=== PATIENT | male | born 1935 | race African-American/Black ===

== ENCOUNTER 2019-08-06 11:04 | Inpatient (IN) | payer MEDICARE, MEDICAID ==
[~2019-08-06] VITALS: Ht 188 cm; Wt 96.6 kg
[2019-08-06] MEDS ORDERED: KETOROLAC 60MG/2ML VIAL IM ONE (11:15)
[2019-08-06] MEDS ORDERED: SODIUM CHLORIDE 0.9% 1,000 ML IV ONE ×2 (12:23→14:15)
[2019-08-06 13:57] LABS: BASOPHILS % 0.1 % (0.0-2.0); EOSINOPHILS % 0.6 % (0.0-5.0); HEMATOCRIT. 40.4 % (42.0-52.0); HEMOGLOBIN. 13.3 g/dL (14.0-18.0); LYMPHOCYTES % 18.6 % (20.0-50.0); MEAN CORPUSCULAR HEMOGLOBIN 32.1 pg (28.0-32.0); MEAN CORPUSCULAR VOLUME 97.8 fL (80.0-94.0); MONOCYTES % 7.9 % (2.0-8.0); NEUTROPHILS % 72.8 % (40.0-76.0); PLATELET 231 x1000/uL (130-400); RED BLOOD CELL COUNT 4.13 mill/uL (4.7-6.1); RED CELL DISTRIBUTION WIDTH 13.5 % (11.6-14.6)
[2019-08-06 14:05] LABS: CHLORIDE 116 mEq/L (98-107)
[2019-08-06 14:22] LABS: CLARITY URINE CLOUDY (CLEAR); COLOR URINE DARK YELLOW (YELLOW); KETONES URINE NEGATIVE (NEGATIVE); LEUKOCYTE ESTERASE URINE 2+ (NEGATIVE); NITRITE URINE POSITIVE (NEGATIVE); OCCULT BLOOD URINE 2+ (NEGATIVE); PROTEIN URINE 1+ (NEGATIVE); SPECIFIC GRAVITY URINE 1.021 (1.005-1.030)
[2019-08-06] MEDS ORDERED: SODIUM CHLORIDE 0.45% 1,000 ML IV ONE (14:30)
[2019-08-06] MEDS ORDERED: CEFTRIAXONE 1 G PREMIX 50 ML IV ONE (14:45)
[2019-08-06] MEDS ORDERED: IPRATROPIUM/ALBUTEROL 0.5-3(2.5)MG/3ML NEB HHN PRN (16:30)
[2019-08-06] MEDS ORDERED: GUAIFENESIN 200MG/10ML SUGAR FREE UDC PO PRN (16:30)
[2019-08-06] MEDS ORDERED: ACETAMINOPHEN 325MG TABLET PO PRN (16:30)
[2019-08-06] MEDS ORDERED: ONDANSETRON HCL 4MG/2ML INJ IV PRN (16:30)
[2019-08-06 18:35] VITALS: BP 140/74
[2019-08-06 20:00] VITALS: BP 169/96
[2019-08-06] MEDS ORDERED: LEVOFLOXACIN 500MG PREMIX 100 ML IV NR (20:00)
[2019-08-06 21:15] VITALS: BP 169/96
[2019-08-06] MEDS: DEXT 5%/0.45% NACL KCL 20MEQ/L 1,000 ML IV SCH (21:33)
[2019-08-06] MEDS: LEVOFLOXACIN 250MG PREMIX 50 ML IV SCH (21:34)
[2019-08-06] MEDS: ENOXAPARIN 30MG/0.3ML SYR SUBCUT SCH (21:37)
[2019-08-07] VITALS: BP 152/72
[2019-08-07 04:00] VITALS: BP 150/77
[2019-08-07 06:14] LABS: BASOPHILS % 0.3 % (0.0-2.0); EOSINOPHILS % 3.1 % (0.0-5.0); HEMATOCRIT. 38.8 % (42.0-52.0); HEMOGLOBIN. 12.6 g/dL (14.0-18.0); LYMPHOCYTES % 25.1 % (20.0-50.0); MEAN CORPUSCULAR HEMOGLOBIN 31.9 pg (28.0-32.0); MEAN CORPUSCULAR VOLUME 98.1 fL (80.0-94.0); MEAN PLATELET VOLUME 10.7 fl (7.4-10.4); MONOCYTES % 7.1 % (2.0-8.0); NEUTROPHILS % 64.4 % (40.0-76.0); PLATELET 213 x1000/uL (130-400); RED BLOOD CELL COUNT 3.96 mill/uL (4.7-6.1); RED CELL DISTRIBUTION WIDTH 13.5 % (11.6-14.6)
[2019-08-07 06:50] LABS: CHLORIDE 118 mEq/L (98-107)
[2019-08-07 07:09] LABS: PHOSPHORUS 3.4 mg/dL (2.5-4.9)
[2019-08-07 08:00] VITALS: BP 151/62
[2019-08-07] MEDS: ENOXAPARIN 30MG/0.3ML SYR SUBCUT SCH (09:03)
[2019-08-07 12:00] VITALS: BP 150/69
[2019-08-07] MEDS: COLCHICINE 0.6MG TABLET PO SCH (12:33)
[2019-08-07] MEDS: DEXT 5%/0.45% NACL KCL 20MEQ/L 1,000 ML IV SCH ×2 (12:34→12:38)
[2019-08-07 16:00] VITALS: BP 148/73
[2019-08-07] MEDS: DEXT 5% WATER + KCL 20MEQ/L 1,000 ML IV SCH (18:59)
[2019-08-07] MEDS ORDERED: DEXT 5%/0.45% NACL KCL 20MEQ/L 1,000 ML IV SCH (19:30)
[2019-08-07] MEDS ORDERED: NA PHOS,M-B/NA PHOS,DI-BA ENEMA 118ML PR NR (19:45)
[2019-08-07 20:00] VITALS: BP 156/74
[2019-08-08] VITALS: BP 155/64
[2019-08-08 04:00] VITALS: BP 152/74
[2019-08-08] MEDS: DEXT 5% WATER + KCL 20MEQ/L 1,000 ML IV SCH ×2 (07:22→10:24)
[2019-08-08 08:00] VITALS: BP 163/69
[2019-08-08] MEDS: COLCHICINE 0.6MG TABLET PO SCH (09:36)
[2019-08-08] MEDS: DOCUSATE SODIUM 100MG CAPSULE PO SCH ×2 (09:36→17:30)
[2019-08-08] MEDS: ENOXAPARIN 40MG/0.4ML SYR SUBCUT SCH (09:36)
[2019-08-08 09:56] LABS: CHLORIDE 114 mEq/L (98-107)
[2019-08-08 10:05] LABS: PHOSPHORUS 2.8 mg/dL (2.5-4.9)
[2019-08-08 16:00] VITALS: BP_SYST 155; BP_SYST 165; BP_DIAS 69
[2019-08-08 20:00] VITALS: BP 168/65
[2019-08-08] MEDS: LEVOFLOXACIN 250MG PREMIX 50 ML IV SCH (20:40)
[2019-08-09] VITALS: BP 115/59
[2019-08-09] MEDS: CLONIDINE 0.1MG TABLET PO PRN (03:35)
[2019-08-09 04:00] VITALS: BP 185/87
[2019-08-09 08:00] VITALS: BP 152/64
[2019-08-09] MEDS: ENOXAPARIN 40MG/0.4ML SYR SUBCUT SCH (08:15)
[2019-08-09] MEDS: DOCUSATE SODIUM 100MG CAPSULE PO SCH ×2 (08:15→17:20)
[2019-08-09] MEDS ORDERED: MEMA1CAP2 PO (11:37)
[2019-08-09] MEDS ORDERED: CHOL100046 MT (11:37)
[2019-08-09] MEDS ORDERED: QUET25TA34 MT (11:37)
[2019-08-09] MEDS ORDERED: ALLO100T MT (11:37)
[2019-08-09] MEDS ORDERED: AMLO10TA80 MT (11:37)
[2019-08-09] MEDS ORDERED: SULF-288 MT (11:37)
[2019-08-09] MEDS ORDERED: MEMA1CAP4 PO (11:37)
[2019-08-09] MEDS ORDERED: ATOR20TA65 MT (11:37)
[2019-08-09 12:00] VITALS: BP 127/55
[2019-08-09 14:16] LABS: BG BASE EXCESS 1.3 mmol/L (-2.0-2.0); BG CARBOXYHEMOGLOBIN 0.7 % (0.5-1.5); BG DEOXYHEMOGLOBIN 4.8 % (0.0-5.0); BG FRACTION INSPIRED OXYGEN 21; BG METHEMOGLOBIN 0.3 % (0.0-1.5); BG OXYGEN SATURATION 95.2 % (92.0-98.5); BG OXYHEMOGLOBIN 94.2 % (94.0-97.0); BG PCO2 41.4 mmHg (35.0-45.0); BG PH 7.415 (7.350-7.450); BG PO2 77.4 mmHg (75.0-100.0); BG SAMPLE SITE RIGHT BRACHIAL; BG TOTAL HEMOGLOBIN 12.8 g/dL (12.0-18.0); BG VENT MODE ROOM AIR
[2019-08-09 16:00] VITALS: BP 117/72
[2019-08-09] MEDS: LEVOFLOXACIN 250MG TABLET PO SCH (16:27)
[2019-08-09 18:12] LABS: BASOPHILS % 0.1 % (0.0-2.0); EOSINOPHILS % 1.4 % (0.0-5.0); HEMATOCRIT. 38.6 % (42.0-52.0); HEMOGLOBIN. 12.6 g/dL (14.0-18.0); LYMPHOCYTES % 20.3 % (20.0-50.0); MEAN CORPUSCULAR HEMOGLOBIN 31.7 pg (28.0-32.0); MEAN CORPUSCULAR VOLUME 96.8 fL (80.0-94.0); MEAN PLATELET VOLUME 10.1 fl (7.4-10.4); MONOCYTES % 10.1 % (2.0-8.0); NEUTROPHILS % 68.1 % (40.0-76.0); PLATELET 201 x1000/uL (130-400); RED BLOOD CELL COUNT 3.98 mill/uL (4.7-6.1); RED CELL DISTRIBUTION WIDTH 12.9 % (11.6-14.6)
[2019-08-09 18:16] LABS: CHLORIDE 112 mEq/L (98-107)
[2019-08-09] MEDS: MEMANTINE HCL 5MG TABLET PO SCH (19:57)
[2019-08-09 20:00] VITALS: BP 139/55
[2019-08-10] VITALS: BP 130/67
[2019-08-10 04:00] VITALS: BP 151/69
[2019-08-10 08:00] VITALS: BP 163/66
[2019-08-10] MEDS: DOCUSATE SODIUM 100MG CAPSULE PO SCH ×2 (08:45→17:17)
[2019-08-10] MEDS: MEMANTINE HCL 5MG TABLET PO SCH ×2 (08:45→20:37)
[2019-08-10] MEDS: DONEPEZIL HCL 10MG TABLET PO SCH (08:45)
[2019-08-10] MEDS: CLONIDINE 0.1MG TABLET PO PRN (08:45)
[2019-08-10] MEDS: ENOXAPARIN 40MG/0.4ML SYR SUBCUT SCH (08:46)
[2019-08-10] MEDS: LEVOFLOXACIN 250MG TABLET PO SCH (11:57)
[2019-08-10 12:00] VITALS: BP 154/69
[2019-08-10 16:00] VITALS: BP 113/68
[2019-08-10 20:00] VITALS: BP 131/79
[2019-08-11] VITALS: BP_SYST 156; BP_SYST 160; BP_DIAS 63
[2019-08-11 04:00] VITALS: BP 144/67
[2019-08-11 08:00] VITALS: BP 154/72
[2019-08-11] MEDS: MEMANTINE HCL 5MG TABLET PO SCH ×2 (09:03→21:07)
[2019-08-11] MEDS: DOCUSATE SODIUM 100MG CAPSULE PO SCH ×2 (09:03→18:13)
[2019-08-11] MEDS: DONEPEZIL HCL 10MG TABLET PO SCH (09:03)
[2019-08-11] MEDS: ENOXAPARIN 40MG/0.4ML SYR SUBCUT SCH (09:05)
[2019-08-11] MEDS: LEVOFLOXACIN 250MG TABLET PO SCH (11:55)
[2019-08-11 12:00] VITALS: BP 154/78
[2019-08-11] MEDS ORDERED: METHYLPREDNISOLONE SOD SUCC 125 MG/2 ML VIAL IV NR (14:30)
[2019-08-11 16:00] VITALS: BP 149/60
[2019-08-11] MEDS ORDERED: PREDNISONE 20MG TABLET PO NR (16:00)
[2019-08-11 20:00] VITALS: BP 160/67
[2019-08-11] MEDS: CLONIDINE 0.1MG TABLET PO PRN (23:25)
[2019-08-12] VITALS (7 sets, daily range): BP systolic 130–177; BP diastolic 64–78
[2019-08-12] MEDS ORDERED: COLCHICINE 0.6MG TABLET PO SCH (09:00)
[2019-08-12] MEDS: MEMANTINE HCL 5MG TABLET PO SCH (09:37)
[2019-08-12] MEDS: ENOXAPARIN 40MG/0.4ML SYR SUBCUT SCH (09:37)
[2019-08-12] MEDS: DOCUSATE SODIUM 100MG CAPSULE PO SCH ×2 (09:37→16:45)
[2019-08-12] MEDS: DONEPEZIL HCL 10MG TABLET PO SCH (09:37)
[2019-08-12] MEDS: IBUPROFEN 600MG TABLET PO SCH ×2 (09:37→17:50)
[2019-08-12] MEDS: LEVOFLOXACIN 250MG TABLET PO SCH (12:07)
[2019-08-12] MEDS ORDERED: PREDNISONE 20MG TABLET PO NR (14:30)
== END 2019-08-12 18:08 | disposition home or self-care (01) | DRG 682 ==
LOC: ER 11:04 → 6EST 14:22 → EDBEDREQSVC 14:24 → EDBEDREQ 14:24 → ENRESERV 17:40 → 6EST 08-11 12:06
PROVIDERS: ADMIT Internal Medicine; ATTEND Internal Medicine
DX: N17.9 Acute kidney failure, unspecified (principal); G93.41 Metabolic encephalopathy; N39.0 Urinary tract infection, site not specified; E87.0 Hyperosmolality and hypernatremia; E86.0 Dehydration; I10 Essential (primary) hypertension; M10.9 Gout, unspecified; F03.90 Unspecified dementia, unspecified severity, without behavioral disturbance, psychotic disturbance, mood disturbance, and anxiety; M19.90 Unspecified osteoarthritis, unspecified site
CPT/HCPCS: 36415; 36600; 70551; 71045; 73560; 73620; 80048; 80053; 81003; 82140; 82375; 82805; 83735; 84100; 84443; 84484; 85025; 87077; 87186; 93005; 93970; 96365; 97162; 97530; 99285; C1893; J0696; J1650; J1885; J1956; J2930; J7030; J7040; J7060; J7512

== ENCOUNTER 2019-11-25 15:18 | Inpatient (IN) | payer MEDICARE, MEDICAID ==
[~2019-11-25] VITALS: Ht 188 cm; Wt 97.5 kg
[~2019-11-25 15:18] MED LIST: ALLO100T MT; AMLO10TA80 MT; ATOR20TA65 MT; CHOL100046 MT; MEMA1CAP2 PO; MEMA1CAP4 PO; QUET25TA34 MT; SULF-288 MT
[2019-11-25 17:31] LABS: CLARITY URINE CLOUDY (CLEAR); COLOR URINE ORANGE (YELLOW); KETONES URINE NEGATIVE (NEGATIVE); LEUKOCYTE ESTERASE URINE 2+ (NEGATIVE); NITRITE URINE POSITIVE (NEGATIVE); OCCULT BLOOD URINE NEGATIVE (NEGATIVE); PROTEIN URINE TRACE (NEGATIVE); SPECIFIC GRAVITY URINE 1.028 (1.005-1.030)
[2019-11-25 17:40] LABS: *AMPHETAMINES SCREEN URINE NEGATIVE (NEGATIVE); *BARBITURATES SCREEN URINE NEGATIVE (NEGATIVE); *BENZODIAZEPINES SCREEN URINE NEGATIVE (NEGATIVE)
[2019-11-25 17:41] LABS: *COCAINE SCREEN URINE NEGATIVE (NEGATIVE); CANNABINOID URINE SCREEN NEGATIVE (NEGATIVE); METHADONE URINE SCREEN NEGATIVE (NEGATIVE); OPIATES URINE SCREEN NEGATIVE (NEGATIVE); PHENCYCLIDINE URINE SCREEN NEGATIVE (NEGATIVE)
[2019-11-25] MEDS ORDERED: CEFTRIAXONE 1 G PREMIX 50 ML IV ONE (18:15)
[2019-11-25 18:27] LABS: HEMATOCRIT. 46.7 % (42.0-52.0); HEMOGLOBIN. 14.6 g/dL (14.0-18.0); MEAN CORPUSCULAR HEMOGLOBIN 30.3 pg (28.0-32.0); MEAN CORPUSCULAR VOLUME 96.7 fL (80.0-94.0); MEAN PLATELET VOLUME 11.7 fl (7.4-10.4); PLATELET 236 x1000/uL (130-400); RED BLOOD CELL COUNT 4.83 mill/uL (4.7-6.1); RED CELL DISTRIBUTION WIDTH 15.7 % (11.6-14.6)
[2019-11-25 19:41] LABS: CHLORIDE 116 mEq/L (98-107)
[2019-11-25 19:45] LABS: ETHANOL BLOOD < 10 mg/dL
[2019-11-25 19:49] LABS: CREATINE KINASE 442 IU/L (39-308)
[2019-11-25 19:49] LABS: PLATELET ESTIMATE NORMAL
[2019-11-25] MEDS ORDERED: LORAZEPAM 2MG/ML CPJ IV PRN (23:15)
[2019-11-25] MEDS ORDERED: ACETAMINOPHEN 325MG TABLET PO PRN ×2 (23:15)
[2019-11-25] MEDS ORDERED: ONDANSETRON HCL 4MG/2ML INJ IV PRN (23:15)
[2019-11-25] MEDS ORDERED: ENOXAPARIN 40MG/0.4ML SYR SUBCUT SCH (23:15)
[2019-11-25] MEDS ORDERED: MAGNESIUM/ALUMINUM HYDROXIDE/SIMETHICONE 30ML UDC PO PRN (23:15)
[2019-11-25] MEDS ORDERED: CLONIDINE 0.1MG TABLET PO PRN (23:15)
[2019-11-25 23:45] VITALS: BP 109/51
[2019-11-26] MEDS ORDERED: LEVOFLOXACIN 500MG PREMIX 100 ML IV SCH (01:00)
[2019-11-26] MEDS: DEXT 5%/0.2% NACL 1,000 ML IV SCH ×3 (03:04→18:30)
[2019-11-26 04:00] VITALS: BP 114/50
[2019-11-26] MEDS: ENOXAPARIN 30MG/0.3ML SYR SUBCUT SCH (09:00)
[2019-11-26 10:17] LABS: HEMATOCRIT. 35.3 % (42.0-52.0); HEMOGLOBIN. 11.4 g/dL (14.0-18.0); MEAN CORPUSCULAR VOLUME 92.8 fL (80.0-94.0); MEAN PLATELET VOLUME 10.7 fl (7.4-10.4); PLATELET 302 x1000/uL (130-400); RED BLOOD CELL COUNT 3.81 mill/uL (4.7-6.1); RED CELL DISTRIBUTION WIDTH 14.6 % (11.6-14.6)
[2019-11-26 10:46] LABS: PHOSPHORUS 3.1 mg/dL (2.5-4.9)
[2019-11-26] MEDS ORDERED: POTASSIUM CHLORIDE 20MEQ/PACKET PO NR (13:00)
[2019-11-26 13:44] LABS: PLATELET ESTIMATE NORMAL
[2019-11-26] MEDS ORDERED: KCL 20MEQ/100ML PREMIX 100 ML IV NR (15:00)
[2019-11-26 16:00] VITALS: BP 106/47
[2019-11-26 20:22] VITALS: BP 90/34
[2019-11-27 00:42] VITALS: BP 99/40
[2019-11-27] MEDS: LEVOFLOXACIN 250MG PREMIX 50 ML IV SCH (01:12)
[2019-11-27 04:19] VITALS: BP 104/31
[2019-11-27] MEDS: DEXT 5%/0.2% NACL 1,000 ML IV SCH ×2 (05:15→18:01)
[2019-11-27 08:00] VITALS: BP 125/52
[2019-11-27] MEDS ORDERED: DEXTROSE 50% WATER 50ML SYRINGE IV PRN (10:45)
[2019-11-27] MEDS: BLOOD SUGAR DIAGNOSTIC STRIP TEST SCH ×3 (11:45→21:45)
[2019-11-27 12:00] VITALS: BP 136/79
[2019-11-27] MEDS: ENOXAPARIN 30MG/0.3ML SYR SUBCUT SCH (12:15)
[2019-11-27] MEDS: INSULIN LISPRO 100 UNITS/ML SUBCUT SCH ×3 (12:15→21:49)
[2019-11-27 12:36] LABS: HEMATOCRIT. 36.7 % (42.0-52.0); HEMOGLOBIN. 11.8 g/dL (14.0-18.0); MEAN CORPUSCULAR HEMOGLOBIN 30.1 pg (28.0-32.0); MEAN CORPUSCULAR VOLUME 93.6 fL (80.0-94.0); MEAN PLATELET VOLUME 10.7 fl (7.4-10.4); PLATELET 280 x1000/uL (130-400); RED BLOOD CELL COUNT 3.92 mill/uL (4.7-6.1); RED CELL DISTRIBUTION WIDTH 14.8 % (11.6-14.6)
[2019-11-27] MEDS: INSULIN GLARGINE UD 100 UNITS/ML SYR SUBCUT SCH (13:38)
[2019-11-27 13:43] LABS: PLATELET ESTIMATE NORMAL
[2019-11-27 16:00] VITALS: BP 122/74
[2019-11-27 20:00] VITALS: BP 149/85
[2019-11-28] VITALS (7 sets, daily range): BP systolic 99–121; BP diastolic 40–67
[2019-11-28] MEDS: LEVOFLOXACIN 250MG PREMIX 50 ML IV SCH (03:09)
[2019-11-28] MEDS: DEXT 5%/0.2% NACL 1,000 ML IV SCH (03:09)
[2019-11-28] MEDS: BLOOD SUGAR DIAGNOSTIC STRIP TEST SCH ×2 (05:56→21:48)
[2019-11-28] MEDS: INSULIN LISPRO 100 UNITS/ML SUBCUT SCH ×2 (06:15→21:00)
[2019-11-28] MEDS: ENOXAPARIN 30MG/0.3ML SYR SUBCUT SCH (09:35)
[2019-11-28] MEDS: INSULIN GLARGINE UD 100 UNITS/ML SYR SUBCUT SCH (10:38)
[2019-11-29 00:22] VITALS: BP 110/44
[2019-11-29] MEDS: LEVOFLOXACIN 250MG PREMIX 50 ML IV SCH (00:59)
[2019-11-29 04:00] VITALS: BP 142/69
[2019-11-29] MEDS: BLOOD SUGAR DIAGNOSTIC STRIP TEST SCH ×4 (06:09→21:00)
[2019-11-29] MEDS: DEXT 5%/0.2% NACL 1,000 ML IV SCH (06:20)
[2019-11-29] MEDS: INSULIN LISPRO 100 UNITS/ML SUBCUT SCH ×2 (06:22→12:15)
[2019-11-29] MEDS: ENOXAPARIN 30MG/0.3ML SYR SUBCUT SCH (09:03)
[2019-11-29 11:33] LABS: BG BASE EXCESS 0.9 mmol/L (-2.0-2.0); BG CARBOXYHEMOGLOBIN 0.2 % (0.5-1.5); BG DEOXYHEMOGLOBIN 6.4 % (0.0-5.0); BG HCO3 ACT 24.1 mmol/L (22.0-26.0); BG OXYGEN SATURATION 93.6 % (92.0-98.5); BG OXYHEMOGLOBIN 93.4 % (94.0-97.0); BG PCO2 33.5 mmHg (35.0-45.0); BG PH 7.474 (7.350-7.450); BG PO2 65.6 mmHg (75.0-100.0); BG SAMPLE SITE RIGHT RADIAL; BG TOTAL HEMOGLOBIN 11.9 g/dL (12.0-18.0); BG VENT MODE ROOM AIR
[2019-11-29] MEDS: INSULIN GLARGINE UD 100 UNITS/ML SYR SUBCUT SCH (11:35)
[2019-11-29 13:01] LABS: BASOPHILS % 0.2 % (0.0-2.0); EOSINOPHILS % 0.6 % (0.0-5.0); LYMPHOCYTES % 7.3 % (20.0-50.0); MEAN CORPUSCULAR VOLUME 92.9 fL (80.0-94.0); MEAN PLATELET VOLUME 9.8 fl (7.4-10.4); MONOCYTES % 5.4 % (2.0-8.0); NEUTROPHILS % 86.5 % (40.0-76.0); PLATELET 332 x1000/uL (130-400); RED BLOOD CELL COUNT 3.66 mill/uL (4.7-6.1); RED CELL DISTRIBUTION WIDTH 14.7 % (11.6-14.6)
[2019-11-29 13:10] LABS: CHLORIDE 125 mEq/L (98-107)
[2019-11-29 13:16] LABS: PHOSPHORUS 2.5 mg/dL (2.5-4.9)
[2019-11-29 16:44] LABS: D-DIMER 8.98 mg/L FEU (<0.50); INR 1.2; PROTHROMBIN TIME 12.9 sec (9.6-11.0)
[2019-11-29] MEDS ORDERED: POTASSIUM CHLORIDE INJ 40 MEQ in DEXT 5% WATER 250 ML IV NR (18:00)
[2019-11-29] MEDS ORDERED: GLUCAGON,HUMAN RECOMBINANT 1MG/VIAL IM NR (18:30)
[2019-11-29] MEDS ORDERED: GLUCAGON,HUMAN RECOMBINANT 1MG/VIAL IM ONE (18:30)
[2019-11-29 20:00] VITALS: BP 126/45
[2019-11-29] MEDS ORDERED: VANCOMYCIN 2,000 MG in DEXT 5% WATER 500 ML IV NR (20:30)
[2019-11-29] MEDS: DEXTROSE 5% WATER 1,000 ML IV SCH (22:43)
[2019-11-30] VITALS: BP 117/52
[2019-11-30] MEDS: PIPERACILLIN/TAZOBACTAM 3.375 G in DEXT 5% WATER 100 ML IV SCH ×4 (01:56→21:57)
[2019-11-30] MEDS: DEXTROSE 5% WATER 1,000 ML IV SCH ×3 (02:47→22:35)
[2019-11-30 04:00] VITALS: BP 111/61
[2019-11-30] MEDS: BLOOD SUGAR DIAGNOSTIC STRIP TEST SCH ×4 (06:45→21:57)
[2019-11-30 08:00] VITALS: BP 89/68
[2019-11-30] MEDS: ENOXAPARIN 30MG/0.3ML SYR SUBCUT SCH (09:25)
[2019-11-30 12:00] VITALS: BP 91/70
[2019-11-30 12:45] LABS: BASOPHILS % 0.1 % (0.0-2.0); EOSINOPHILS % 0.9 % (0.0-5.0); HEMOGLOBIN. 11.5 g/dL (14.0-18.0); LYMPHOCYTES % 7.3 % (20.0-50.0); MEAN CORPUSCULAR HEMOGLOBIN 30.1 pg (28.0-32.0); MEAN CORPUSCULAR VOLUME 93.9 fL (80.0-94.0); MEAN PLATELET VOLUME 9.8 fl (7.4-10.4); MONOCYTES % 5.8 % (2.0-8.0); NEUTROPHILS % 85.9 % (40.0-76.0); PLATELET 340 x1000/uL (130-400); RED BLOOD CELL COUNT 3.83 mill/uL (4.7-6.1); RED CELL DISTRIBUTION WIDTH 14.7 % (11.6-14.6)
[2019-11-30 12:49] LABS: CHLORIDE 123 mEq/L (98-107)
[2019-11-30] MEDS ORDERED: SODIUM BICARBONATE 4% (2.4MEQ) 5ML VIAL IV ONE (14:57)
[2019-11-30] MEDS ORDERED: LIDOCAINE HCL 1% 20ML VIAL (Pyxis) INJ ONE (14:57)
[2019-11-30] MEDS ORDERED: VANCOMYCIN 1250MG in DEXTROSE 5% WATER 250ML IV SCH (15:00)
[2019-11-30] MEDS ORDERED: VANCOMYCIN 1500MG in DEXTROSE 5% WATER 250ML IV SCH (15:00)
[2019-11-30 16:00] VITALS: BP_SYST 98; BP_DIAS 48; BP_DIAS 61
[2019-11-30] MEDS ORDERED: DEXT 5% WATER + KCL 40MEQ/L 1,000 ML IV ONE (16:30)
[2019-11-30] MEDS ORDERED: POTASSIUM CHLORIDE INJ 40 MEQ in DEXT 5% WATER 250 ML IV NR (18:00)
[2019-11-30 20:00] VITALS: BP 113/64
[2019-12-01] VITALS: BP 118/68
[2019-12-01] MEDS: PIPERACILLIN/TAZOBACTAM 3.375 G in DEXT 5% WATER 100 ML IV SCH ×4 (02:22→20:45)
[2019-12-01 04:00] VITALS: BP 103/53
[2019-12-01] MEDS: BLOOD SUGAR DIAGNOSTIC STRIP TEST SCH ×4 (06:18→20:49)
[2019-12-01 08:00] VITALS: BP 106/55
[2019-12-01 08:27] LABS: HEPATITIS B SURFACE ANTIGEN NEGATIVE
[2019-12-01] MEDS: DEXTROSE 5% WATER 1,000 ML IV SCH ×2 (08:31→18:47)
[2019-12-01] MEDS: ENOXAPARIN 30MG/0.3ML SYR SUBCUT SCH (08:31)
[2019-12-01] MEDS: VANCOMYCIN 1250MG in DEXTROSE 5% WATER 250ML IV SCH (09:54)
[2019-12-01 11:15] LABS: CHLORIDE 122 mEq/L (98-107); HEMATOCRIT. 31.4 % (42.0-52.0); HEMOGLOBIN. 10.1 g/dL (14.0-18.0); MEAN CORPUSCULAR HEMOGLOBIN 29.8 pg (28.0-32.0); MEAN CORPUSCULAR VOLUME 92.6 fL (80.0-94.0); MEAN PLATELET VOLUME 9.8 fl (7.4-10.4); PLATELET 306 x1000/uL (130-400); RED BLOOD CELL COUNT 3.39 mill/uL (4.7-6.1); RED CELL DISTRIBUTION WIDTH 14.7 % (11.6-14.6)
[2019-12-01 12:00] VITALS: BP 106/65
[2019-12-01 14:16] LABS: PLATELET ESTIMATE NORMAL
[2019-12-01 16:00] VITALS: BP 113/54
[2019-12-01 20:45] VITALS: BP 122/52
[2019-12-02] VITALS (7 sets, daily range): BP systolic 101–130; BP diastolic 47–71
[2019-12-02] MEDS: PIPERACILLIN/TAZOBACTAM 3.375 G in DEXT 5% WATER 100 ML IV SCH ×4 (01:56→21:58)
[2019-12-02] MEDS: VANCOMYCIN 1250MG in DEXTROSE 5% WATER 250ML IV SCH ×2 (02:50→23:19)
[2019-12-02] MEDS: BLOOD SUGAR DIAGNOSTIC STRIP TEST SCH ×4 (06:54→21:24)
[2019-12-02 07:27] LABS: BASOPHILS % 0.1 % (0.0-2.0); EOSINOPHILS % 2.8 % (0.0-5.0); HEMOGLOBIN. 11.3 g/dL (14.0-18.0); LYMPHOCYTES % 11.9 % (20.0-50.0); MEAN CORPUSCULAR HEMOGLOBIN 29.9 pg (28.0-32.0); MEAN CORPUSCULAR VOLUME 94.8 fL (80.0-94.0); MEAN PLATELET VOLUME 9.8 fl (7.4-10.4); MONOCYTES % 6.6 % (2.0-8.0); NEUTROPHILS % 78.6 % (40.0-76.0); PLATELET 236 x1000/uL (130-400); RED BLOOD CELL COUNT 3.79 mill/uL (4.7-6.1); RED CELL DISTRIBUTION WIDTH 14.6 % (11.6-14.6)
[2019-12-02 07:45] LABS: CHLORIDE 114 mEq/L (98-107)
[2019-12-02] MEDS: ENOXAPARIN 30MG/0.3ML SYR SUBCUT SCH (08:05)
[2019-12-02] MEDS: DEXTROSE 5% WATER 1,000 ML IV SCH ×2 (08:11→13:39)
[2019-12-02] MEDS ORDERED: POTASSIUM CHLORIDE INJ 40 MEQ in DEXT 5% WATER 250 ML IV SCH (15:00)
[2019-12-03] VITALS: BP 111/30
[2019-12-03 04:00] VITALS: BP 121/36
[2019-12-03] MEDS: PIPERACILLIN/TAZOBACTAM 3.375 G in DEXT 5% WATER 100 ML IV SCH ×4 (04:57→21:05)
[2019-12-03] MEDS: DEXTROSE 5% WATER 1,000 ML IV SCH ×2 (04:58→11:38)
[2019-12-03 05:54] LABS: INR 1.2; PARTIAL THROMBOPLASTIN TIME 34.3 sec (23.4-31.0); PROTHROMBIN TIME 12.5 sec (9.6-11.0)
[2019-12-03 05:57] LABS: CHLORIDE 113 mEq/L (98-107)
[2019-12-03] MEDS: BLOOD SUGAR DIAGNOSTIC STRIP TEST SCH ×4 (06:09→21:04)
[2019-12-03 06:41] LABS: BASOPHILS % 0.3 % (0.0-2.0); EOSINOPHILS % 1.6 % (0.0-5.0); HEMATOCRIT. 30.9 % (42.0-52.0); HEMOGLOBIN. 10.2 g/dL (14.0-18.0); LYMPHOCYTES % 11.5 % (20.0-50.0); MEAN CORPUSCULAR HEMOGLOBIN 30.1 pg (28.0-32.0); MEAN CORPUSCULAR VOLUME 91.1 fL (80.0-94.0); MEAN PLATELET VOLUME 9.5 fl (7.4-10.4); NEUTROPHILS % 80.6 % (40.0-76.0); PLATELET 301 x1000/uL (130-400); RED BLOOD CELL COUNT 3.39 mill/uL (4.7-6.1); RED CELL DISTRIBUTION WIDTH 14.3 % (11.6-14.6)
[2019-12-03 08:00] VITALS: BP 121/57
[2019-12-03] MEDS: VANCOMYCIN 1250MG in DEXTROSE 5% WATER 250ML IV SCH (15:27)
[2019-12-03 20:00] VITALS: BP 140/60
[2019-12-04] VITALS: BP 137/56
[2019-12-04] MEDS: DEXTROSE 5% WATER 1,000 ML IV SCH ×3 (01:51→16:43)
[2019-12-04] MEDS: PIPERACILLIN/TAZOBACTAM 3.375 G in DEXT 5% WATER 100 ML IV SCH ×4 (02:15→21:06)
[2019-12-04 04:00] VITALS: BP 121/48
[2019-12-04] MEDS: BLOOD SUGAR DIAGNOSTIC STRIP TEST SCH ×4 (06:33→21:03)
[2019-12-04 08:00] VITALS: BP 124/79
[2019-12-04] MEDS: VANCOMYCIN 1250MG in DEXTROSE 5% WATER 250ML IV SCH (09:20)
[2019-12-04 12:00] VITALS: BP 121/68
[2019-12-04 16:00] VITALS: BP 126/63
[2019-12-04 20:00] VITALS: BP 126/85
[2019-12-05 00:29] VITALS: BP_SYST 103; BP_SYST 155; BP_DIAS 49; BP_DIAS 59
[2019-12-05] MEDS: PIPERACILLIN/TAZOBACTAM 3.375 G in DEXT 5% WATER 100 ML IV SCH ×4 (02:22→21:06)
[2019-12-05] MEDS: DEXTROSE 5% WATER 1,000 ML IV SCH ×3 (02:23→22:41)
[2019-12-05 04:00] VITALS: BP 92/52
[2019-12-05] MEDS: BLOOD SUGAR DIAGNOSTIC STRIP TEST SCH ×4 (06:35→21:06)
[2019-12-05 09:05] LABS: BASOPHILS % 0.2 % (0.0-2.0); EOSINOPHILS % 0.5 % (0.0-5.0); HEMATOCRIT. 32.8 % (42.0-52.0); HEMOGLOBIN. 10.7 g/dL (14.0-18.0); LYMPHOCYTES % 7.3 % (20.0-50.0); MEAN CORPUSCULAR HEMOGLOBIN 29.6 pg (28.0-32.0); MONOCYTES % 7.4 % (2.0-8.0); NEUTROPHILS % 84.6 % (40.0-76.0); PLATELET 305 x1000/uL (130-400); RED CELL DISTRIBUTION WIDTH 14.1 % (11.6-14.6)
[2019-12-05 09:23] VITALS: BP 114/56
[2019-12-05 09:29] LABS: CHLORIDE 108 mEq/L (98-107)
[2019-12-05] MEDS ORDERED: POTASSIUM CHLORIDE INJ 60 MEQ in DEXT 5% WATER 500 ML IV ONE (12:00)
[2019-12-05 12:30] VITALS: BP 145/61
[2019-12-05 16:00] VITALS: BP 107/61
[2019-12-05] MEDS ORDERED: KCL 20MEQ/100ML PREMIX 100 ML IV ONE (16:00)
[2019-12-05 20:00] VITALS: BP 110/62
[2019-12-06] VITALS (16 sets, daily range): BP systolic 100–146; BP diastolic 50–77
[2019-12-06] MEDS: PIPERACILLIN/TAZOBACTAM 3.375 G in DEXT 5% WATER 100 ML IV SCH ×5 (02:35→20:40)
[2019-12-06] MEDS: BLOOD SUGAR DIAGNOSTIC STRIP TEST SCH ×4 (06:46→20:40)
[2019-12-06 07:48] LABS: CHLORIDE 110 mEq/L (98-107)
[2019-12-06 07:53] LABS: HEMATOCRIT 35.2 % (42.0-52.0); HEMOGLOBIN 11.4 g/dL (14.0-18.0); MEAN CORPUSCULAR HEMOGLOBIN 29.5 pg (28.0-32.0); MEAN CORPUSCULAR VOLUME 90.9 fL (80.0-94.0); PHOSPHORUS 2.3 mg/dL (2.5-4.9); PLATELET 292 x1000/uL (130-400); RED BLOOD CELL COUNT 3.88 mill/uL (4.7-6.1); RED CELL DISTRIBUTION WIDTH 14.5 % (11.6-14.6)
[2019-12-06] MEDS: DEXTROSE 5% WATER 1,000 ML IV SCH ×2 (08:47→17:32)
[2019-12-06] MEDS ORDERED: SODIUM BICARBONATE 4% (2.4MEQ) 5ML VIAL IV ONE (12:39)
[2019-12-06] MEDS ORDERED: LIDOCAINE HCL 1% 20ML VIAL (Pyxis) INJ ONE (12:39)
[2019-12-06] MEDS ORDERED: IOHEXOL-300 50 ML BOTTLE IV ONE (12:42)
[2019-12-06] MEDS ORDERED: FENTANYL CITRATE/PF 50MCG/ML 2ML VIAL ONE (13:03)
[2019-12-06] MEDS ORDERED: FENTANYL CITRATE/PF 50MCG/ML 2ML VIAL IV ONE (13:45)
[2019-12-07] VITALS: BP 128/78
[2019-12-07] MEDS: PIPERACILLIN/TAZOBACTAM 3.375 G in DEXT 5% WATER 100 ML IV SCH ×3 (01:35→17:01)
[2019-12-07 04:00] VITALS: BP 124/82
[2019-12-07] MEDS: DEXTROSE 5% WATER 1,000 ML IV SCH (04:57)
[2019-12-07] MEDS: BLOOD SUGAR DIAGNOSTIC STRIP TEST SCH ×4 (06:45→21:00)
[2019-12-07 08:00] VITALS: BP 142/74
[2019-12-07 08:20] LABS: HEMATOCRIT 36.2 % (42.0-52.0); HEMOGLOBIN 11.9 g/dL (14.0-18.0); MEAN CORPUSCULAR HEMOGLOBIN 30.1 pg (28.0-32.0); MEAN CORPUSCULAR VOLUME 91.4 fL (80.0-94.0); PLATELET 281 x1000/uL (130-400); RED BLOOD CELL COUNT 3.96 mill/uL (4.7-6.1); RED CELL DISTRIBUTION WIDTH 14.5 % (11.6-14.6)
[2019-12-07 08:59] LABS: CHLORIDE 110 mEq/L (98-107)
[2019-12-07] MEDS ORDERED: POTASSIUM CHLORIDE 20MEQ TABLET SR PO NR (11:15)
[2019-12-07] MEDS ORDERED: LEVO500T2 MT (12:13)
[2019-12-07] MEDS ORDERED: AMOX-424 MT (12:13)
[2019-12-07] MEDS ORDERED: LACTULOSE 20G/30ML UDC PO NR (13:30)
[2019-12-07] MEDS ORDERED: BISACODYL 10MG SUPP PR NR (13:30)
[2019-12-07 16:00] VITALS: BP 142/74
[2019-12-07 20:00] VITALS: BP 90/67
[2019-12-08] VITALS (7 sets, daily range): BP systolic 110–114; BP diastolic 49–82
[2019-12-08] MEDS: BLOOD SUGAR DIAGNOSTIC STRIP TEST SCH ×2 (06:45→11:45)
[2019-12-08 08:10] LABS: HEMOGLOBIN 10.8 g/dL (14.0-18.0); MEAN CORPUSCULAR HEMOGLOBIN 29.9 pg (28.0-32.0); MEAN CORPUSCULAR VOLUME 91.2 fL (80.0-94.0); PLATELET 314 x1000/uL (130-400); RED BLOOD CELL COUNT 3.61 mill/uL (4.7-6.1); RED CELL DISTRIBUTION WIDTH 14.3 % (11.6-14.6)
[2019-12-08 08:19] LABS: CHLORIDE 110 mEq/L (98-107)
== END 2019-12-08 17:42 | disposition hospice, home (50) | DRG 871 ==
LOC: ER 15:18 → 5WST 18:39 → ENRESERV 19:57
PROVIDERS: ADMIT Internal Medicine; ATTEND Internal Medicine
PROC: 02HV33Z Insertion of Infusion Device into Superior Vena Cava, Percutaneous Approach (ICD-10-PCS; principal; 2019-11-30)
PROC: B5181ZA Fluoroscopy of Superior Vena Cava using Low Osmolar Contrast, Guidance (ICD-10-PCS; 2019-11-30)
PROC: B548ZZA Ultrasonography of Superior Vena Cava, Guidance (ICD-10-PCS; 2019-11-30)
PROC: 0F9430Z Drainage of Gallbladder with Drainage Device, Percutaneous Approach (ICD-10-PCS; 2019-12-06)
DX: A41.9 Sepsis, unspecified organism (principal); E43 Unspecified severe protein-calorie malnutrition; G93.41 Metabolic encephalopathy; J69.0 Pneumonitis due to inhalation of food and vomit; K75.0 Abscess of liver; E87.0 Hyperosmolality and hypernatremia; N17.9 Acute kidney failure, unspecified; N39.0 Urinary tract infection, site not specified; E87.1 Hypo-osmolality and hyponatremia; K80.10 Calculus of gallbladder with chronic cholecystitis without obstruction; E86.0 Dehydration; R62.7 Adult failure to thrive; M24.50 Contracture, unspecified joint; F03.90 Unspecified dementia, unspecified severity, without behavioral disturbance, psychotic disturbance, mood disturbance, and anxiety; M10.9 Gout, unspecified; E87.6 Hypokalemia; I12.9 Hypertensive chronic kidney disease with stage 1 through stage 4 chronic kidney disease, or unspecified chronic kidney disease; N18.9 Chronic kidney disease, unspecified; E16.2 Hypoglycemia, unspecified; D64.9 Anemia, unspecified; K76.0 Fatty (change of) liver, not elsewhere classified; L85.3 Xerosis cutis; E78.5 Hyperlipidemia, unspecified; L89.95 Pressure ulcer of unspecified site, unstageable; R19.00 Intra-abdominal and pelvic swelling, mass and lump, unspecified site; R91.1 Solitary pulmonary nodule; Z74.01 Bed confinement status; Z68.27 Body mass index [BMI] 27.0-27.9, adult
CPT/HCPCS: 36415; 36573; 36600; 47490; 71045; 71250; 74176; 76700; 76937; 78227; 80048; 80053; 80076; 80202; 80305; 80320; 81003; 82105; 82140; 82375; 82378; 82550; 82805; 82962; 83036; 83615; 83735; 84100; 84132; 84145; 84484; 85025; 85027; 85379; 85651; 86140; 86301; 86635; 86803; 87075; 87340; 92610; 93005; 93970; 97163; 99152; 99153; 99285; A9537; C1725; C1729; C1769; J0696; J1610; J1650; J1815; J1956; J2543; J3010; J3370; J3480; J3490; J7060; J7070; Q9967; G0480; G0500